=== PATIENT | male | born 2000 | race Caucasian/White ===

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

== ENCOUNTER → 2021-03-21 | Outpatient (CLI) | payer BC ==
[~2021-03-21] MED LIST: OSEL75CA PO
[2021-03-21 12:23] LABS: ALBUMIN 4.2 GM/DL (3.2-5.2); ALT/SGPT 55 U/L (12-78); BILIRUBIN,TOTAL 0.7 MG/DL (0.2-1.0); BLOOD UREA NITROGEN 16 MG/DL (7-18); CALCIUM LEVEL 9.4 MG/DL (8.5-10.1); CARBON DIOXIDE LEVEL 28 MEQ/L (21-32); CHLORIDE LEVEL 107 MEQ/L (98-107); CHOLESTEROL LEVEL 190 MG/DL (<200); CHOLESTEROL RISK RATIO 3.392 (<5); CREATININE FOR GFR 0.89 MG/DL (0.70-1.30); GLOMERULAR FILTRATION RATE > 60.0 (>60); GLUCOSE, FASTING 94 MG/DL (70-100); HDL CHOLESTEROL 56 MG/DL (>40); LDL CHOLESTEROL 115 MG/DL (<100); NON-HDL-C 134 MG/DL; POTASSIUM SERUM 4.1 MEQ/L (3.5-5.1); SODIUM LEVEL 140 MEQ/L (136-145); TOTAL PROTEIN 7.1 GM/DL (6.4-8.2); TRIGLYCERIDES LEVEL 95 MG/DL (<150)
[2021-03-21 12:27] LABS: TOTAL 25(OH) VITAMIN D 14.9 NG/ML (30.0-100.0)
== END ==
LOC: M LAB 10:56
PROVIDERS: ATTEND Physical Therapist
DX: E78.5 Hyperlipidemia, unspecified (principal); E55.9 Vitamin D deficiency, unspecified

== ENCOUNTER → 2023-01-02 | Outpatient (CLI) | payer OTHER ==
[2023-01-02 09:51] LABS: BASO % 0.2 % (0.0-1.0); EOS # 0.1 10^3/uL (0.0-0.5); EOS % 2.1 % (0.0-3.0); HEMATOCRIT 44.7 % (42.0-52.0); HEMOGLOBIN 15.6 g/dl (13.5-17.5); LYMPH # 1.5 10^3/uL (1.5-5.0); LYMPH % 28.7 % (24.0-44.0); MEAN CORPUSCULAR HEMOGLOBIN 30.7 pg (27.0-33.0); MEAN CORPUSCULAR HGB CONC 34.9 g/dl (32.0-36.5); MONO # 0.4 10^3/uL (0.0-0.8); MONO % 8.3 % (2.0-8.0); NEUTROPHILS # 3.2 10^3/uL (1.5-8.5); NEUTROPHILS % 60.5 % (36.0-66.0); PLATELET COUNT, AUTOMATED 250 10^3/uL (150-450); RED BLOOD COUNT 5.08 10^6/uL (4.30-6.10); WHITE BLOOD COUNT 5.3 10^3/uL (4.0-10.0)
[2023-01-02 10:26] LABS: HEMOGLOBIN A1c 4.6 % (4.0-6.0)
[2023-01-02 10:35] LABS: ALKALINE PHOSPHATASE 63 U/L (46-116); ALT/SGPT 77 U/L (7.0-40); AST/SGOT 153 U/L (<34); BILIRUBIN,TOTAL 0.9 MG/DL (0.3-1.2); BLOOD UREA NITROGEN 12 MG/DL (9-23); CALCIUM LEVEL 9.1 MG/DL (8.5-10.1); CARBON DIOXIDE LEVEL 27 MMOL/L (20-31); CHLORIDE LEVEL 109 MMOL/L (98-107); CHOLESTEROL LEVEL 153 MG/DL (<200); CHOLESTEROL RISK RATIO 3.79 (<5); CREATININE FOR GFR 0.84 MG/DL (0.70-1.30); GLOMERULAR FILTRATION RATE > 60.0 (>60); GLUCOSE, FASTING 91 MG/DL (60-100); HDL CHOLESTEROL 40.3 MG/DL (>40); LDL CHOLESTEROL 100.7 MG/DL (<100); NON-HDL-C 112.7 MG/DL; POTASSIUM SERUM 4.1 MMOL/L (3.5-5.1); SODIUM LEVEL 141 MMOL/L (136-145); TOTAL 25(OH) VITAMIN D 22.4 NG/ML (20.0-100.0); TOTAL PROTEIN 6.5 G/DL (5.7-8.2); TRIGLYCERIDES LEVEL 60 MG/DL (<150)
[2023-01-02 11:00] LABS: THYROID STIMULATING HORMONE 1.273 uIU/ML (0.55-4.78)
== END ==
LOC: M LAB 08:59
PROVIDERS: ATTEND Physical Therapist
DX: E66.9 Obesity, unspecified (principal); E55.9 Vitamin D deficiency, unspecified

== ENCOUNTER → 2023-02-03 | Outpatient (CLI) | payer OTHER | LOC: M RAD 06:24 | PROVIDERS: ATTEND Physical Therapist | DX: R93.2 Abnormal findings on diagnostic imaging of liver and biliary tract (principal); R79.9 Abnormal finding of blood chemistry, unspecified ==